=== PATIENT | male | born 1950 | race Caucasian/White ===

== ENCOUNTER 2022-06-18 10:43 | Outpatient (REF) | payer OTHER, SELFPAY ==
[2022-06-18 13:49] LABS: MANUAL DIFF FLAG NO
[2022-06-18 13:54] LABS: Basophils Percent Auto 0.5 % (0-2); Eosinophils Absolute Auto 0.2 X10*3/uL (0.0-0.4); Eosinophils Percent Auto 2.3 % (0-4); Hematocrit 43.5 % (42.0-52.0); Hemoglobin 14.6 g/dl (14.0-18.0); Imm Gran Abs Auto 0.03 X10*3/uL (0.00-0.03); Imm Gran Pct Auto 0.3 % (0.0-0.4); Lymphocytes Absolute Auto 1.9 X10*3/uL (1.2-4.9); Lymphocytes Percent Auto 21.8 % (20-40); Mean Corpuscular HGB Conc 33.6 g/dl (31.0-36.0); Mean Corpuscular Hemoglobin 31.3 pg (27.0-33.0); Mean Corpuscular Volume 93.1 fL (80.0-98.0); Mean Platelet Volume 10.7 fL (9.4-12.4); Monocytes Absolute Auto 0.8 X10*3/uL (0.1-1.2); Monocytes Percent Auto 8.8 % (2-11); Neutrophils Absolute Auto 5.9 x10*3/uL (2.0-8.3); Neutrophils Percent Auto 66.3 % (45-73); Platelet Count 242 X10*3/uL (160-400); Red Blood Count 4.67 X10*6/uL (4.60-5.80); Red Cell Distribution Width 13.2 % (11.0-16.0); White Blood Count 8.9 X10*3/uL (4.8-10.8)
[2022-06-18 14:04] LABS: Estimated Average Glucose 123 mg/dL; Hemoglobin A1c % 5.9 %
[2022-06-18 14:13] LABS: Alanine Aminotransferase 24 U/L (0-40); Albumin Level 3.9 g/dL (3.5-5.0); Alkaline Phosphatase 46 U/L (39-117); Anion Gap 13 (12-20); Aspartate Amino Transferase 24 U/L (5-37); Bilirubin Total 0.5 mg/dL (0.0-1.0); Blood Urea Nitrogen 16 mg/dL (9-16); Calcium 9.1 mg/dL (8.4-10.2); Carbon Dioxide 25 mmol/L (22-29); Chloride 104 mmol/L (96-108); Estimated Glomerular Filt Rate > 60; Glucose Random 109 mg/dL (60-115); Potassium 4.4 mmol/L (3.3-5.1); Sodium 138 mmol/L (135-145); Total Protein 7.3 g/dL (6.5-8.0)
[2022-06-18 14:34] LABS: Prostate Specific Antigen 2.23 ng/mL (<0.05-4.0)
== END 2022-06-18 10:44 | disposition home or self-care (01) ==
LOC: HO.HMGCLDS 10:43
PROVIDERS: PCP Internal Medicine; Visit Provider Internal Medicine
DX: Z12.5 Encounter for screening for malignant neoplasm of prostate (principal); E78.00 Pure hypercholesterolemia, unspecified; I12.9 Hypertensive chronic kidney disease with stage 1 through stage 4 chronic kidney disease, or unspecified chronic kidney disease; N18.31 Chronic kidney disease, stage 3a; N40.1 Benign prostatic hyperplasia with lower urinary tract symptoms
CPT/HCPCS: 36415; 80053; 83036; 84153; 85025

== ENCOUNTER 2022-07-16 15:27 | Emergency (ER) | payer OTHER, SELFPAY ==
[2022-07-16 16:08] VITALS: BP 148/70; PULSE 64; RESP 16; TEMP 36.1; O2SAT 96; BMI 53.9
--- NOTE | 2022-07-16 16:19 | ED_ITS ---
HPI - General Adult General Chief complaint: General Medical Stated complaint: HIGH BP 210/100 , 162/94 NOW PER EMS Time Seen by Provider: 07/16/22 16:18 Source: patient and EMS Mode of arrival: EMS Limitations: no limitations History of Present Illness HPI narrative: Patient is a 72 year old male presenting to the emergency department today with concerns of an elevated blood pressure and that he may lose his apartment. Patient states that he got a new blood pressure cuff and it read very high at home so he called 911. Patient states that he is also concerned that he is going to lose his apartment. Patient denies any dizziness, lightheadedness, abdominal pain, nausea, vomiting, fever, chills, blurry vision, double vision, loss of vision, chest pain, difficulty breathing, shortness of breath, back pain, night sweats, pain with urination, increased urinary frequency, increased urinary urgency, blood in his urine or stool, syncope or a near syncopal episode, recent trauma or falls, bowel incontinence, bladder incontinence, bowel retention, bladder retention, or any other complaints at this time. Severity: mild Severity scale (1-10): 1 Relieving factors: none Exacerbating factors: none Associated symptoms: denies other symptoms Treatments prior to arrival: none Related Data Allergies Allergy/AdvReac Type Severity Reaction Status Date / Time No Known Allergies Allergy Verified 07/16/22 16:26 Review of Systems Constitutional: Constitutional: Reports no additional constitutional complaints, Denies chills, Denies fever(s) and Denies night sweats Eyes: Eyes: Reports no additional eye complaints, Denies blurry vision, Denies change in vision, Denies diplopia, Denies eye discharge, Denies loss of vision and Denies eye pain ENT: Denies dizziness Cardiovascular: Cardiovascular: Reports no additional cardiovascular complaints, Denies chest pain, Denies lightheadedness, Denies Loss of Consciousness and Denies dyspnea Respiratory: Respiratory: Reports no additional respiratory complaints and Denies dyspnea Gastrointestinal: Gastrointestinal: Reports no additional gastrointestinal complaints, Denies abdominal pain, Denies melena, Denies hematochezia, Denies change in bowel habits and Denies change in stool character Genitourinary: Genitourinary: Reports no additional male genitourinary complaints, Denies hematuria, Denies oliguria, Denies difficulty urinating, Denies dysuria, Denies urinary frequency, Denies urinary hesitancy, Denies urinary incontinence and Denies urinary urgency Musculoskeletal: Musculoskeletal: Reports no additional musculoskeletal complaints, Denies numbness and Denies tingling Neurologic: Denies dizziness, Denies loss of vision, Denies numbness and Denies tingling Psychiatric: Psychiatric: Reports no additional psychiatric complaints Endocrine: Endocrine: Reports no additional endocrine complaints Hematologic/Lymphatic: Hematologic/Lymphatic: Reports no additional hematologic/lymphatic complaints Allergic/Immunologic: Allergic/Immunologic: Reports no additional allergic/immunologic complaints PMFSH Past Medical History Attestation statement: The following information was validated with the patient. Source: old records reviewed Social History Social History Advance Directives: No Advance Directives Information Provided: No Physical Exam ED Vital Signs: Vital Signs - 24 hr 07/16/22 16:08 Temperature 97 F Pulse Rate 64 Respiratory Rate 16 Blood Pressure 148/70 H Pulse Oximetry 96 Oxygen Delivery Method Room Air BMI result Body Mass Index 53.9 Const General: cooperative, no acute distress, alert and awake Nutritional Appearance: well nourished Orientation/consciousness: patient oriented x3 Limitations: no limitations HENMT Head: Yes normal to inspection and Yes atraumatic Ears: hearing grossly normal bilaterally and external ears normal General nose exam: Normal external nose present, no nasal discharge noted and no epistaxis Face and sinus: Yes normal facial exam, No abrasion and No laceration Mouth: Normal oral and palatal mucosa present, no drooling and no muffled voice Eyes General: appearance normal, both eyes and all related structures Periorbital: periorbital findings normal Eyelids: Yes eyelids normal Conjunctivae: conjunctivae normal Pupils: Equal, round and reactive pupils present EOM: EOMs intact bilaterally Neck Neck: Yes normal visual inspection, Yes full ROM and Yes no lymphadenopathy Chest Chest palpation & inspection: normal inspection of the chest Resp Effort & Inspection: normal respiratory effort and able to speak in complete sentences Auscultation: clear to auscultation bilaterally Cardio Rate: regular rate Rhythm: regular rhythm GI Inspection: Yes normal to inspection Neuro General: patient oriented x3 and moves all extremities Cranial nerves: Yes Equal, round and reactive pupils present Cognition (Neuro): normal cognition Motor exam (neuro): 5/5 motor strength present throughout Sensory Exam: Normal double simultaneous stimulation for sensation Coordination: [id number] test normal Extrem General: Yes normal to inspection, Yes full ROM and Yes capillary refill normal Psych Appearance: grossly normal Mental Status: mental status grossly normal Affect: normal affect Attitude: cooperative Thought process: Normal thought process present Thought content: Normal thought content present Insight: Good insight present (Psych) Medical Decision Making MDM Narrative Medical decision making narrative: Patient is a 72 year old male presenting to the emergency department today with a possible elevated blood pressure and concerns about his apartment. Patient's physical exam was unremarkable. I explained my physical exam findings to the patient. I answered all questions asked by the patient. Patient spoke to case management and the public health teacher. I stressed the importance of the patient taking his medication as prescribed. I stressed the importance of the patient following up with his primary care provider. I stressed the importance of the patient returning to the emergency department immediately if his symptoms were to worsen or if he were to develop any dizziness, shortness of breath, difficulty breathing, chest pain, blurry vision, loss of vision, nausea, vomiting, abdominal pain, fever, chills, back pain, or any other complaints. Patient verbalized agreement and understanding with this treatment plan and discharge. Medical Records Medical records reviewed: Yes I reviewed the patient's medical records. Discharge Plan Discharge Clinical Impression: History of hypertension Patient Disposition: Home, Self-Care Additional Instructions: Follow up with your primary care provider. Return to the emergency department immediately if your symptoms worsen or if you develop any dizziness, shortness of breath, difficulty breathing, chest pain, blurry vision, loss of vision, nausea, vomiting, abdominal pain, fever, chills, back pain, or any other complaints. Referrals: Sofia Doan MD [Primary Care Provider] - Print Language: Persian
--- NOTE | 2022-07-16 17:28 | PC.NURSE ---
Portable Track Crew Chief currently at bedside speaking with patient
--- NOTE | 2022-07-16 17:41 | PC.NURSE ---
patient seen by Lali from case management- patient is feeling safe to go home.
--- NOTE | 2022-07-16 18:19 | MHC.CM.ED ---
CM met with patient at request of Julianne GUADALUPE, as pt has concerns about his housing. CM met with patient. He tells CM that his partner of the last several years 2 weeks ago in her sleep. Pt is grieving. Pt is concerned about his rent, as he and his partner were both contributing to the rent. Also, his landlord is increasing the rent. CM sat and listened to patient. CM spoke with CARE team for assistance. Pt given contact card, [facility] hand out, telephone contacts for [facility], [facility] and [facility]. Pt has a care giver. Encouraged pt to call his care giver.. Encouraged pt to sign up for elderly housing. Per pt, he has financial need, will be unable to pay his current rent and is a vet. Pt is not vet connected and has no veterans services. CM consulted Pastor Bhakta regarding this patient. Pastor Bhakta met with pt and offered supports and grief counseling. Pt was very happy with his referrals. Julianne and JADE Mackay obtained, as pt does not have transportation.
== END 2022-07-16 17:59 | disposition home or self-care (01) ==
PROVIDERS: Emergency Provider Internal Medicine; PCP Internal Medicine
DX: I10 Essential (primary) hypertension (principal); Z79.899 Other long term (current) drug therapy
CPT/HCPCS: 99282; 99283

== ENCOUNTER 2022-12-09 12:00 | Outpatient (RCR) | payer OTHER, SELFPAY ==
--- NOTE | 2022-12-04 10:54 | P.HPPSP_ITS ---
HPI Date of Service: 12/04/22 Chief Complaint: BLANQUITA Sources of Information: patient interviewed, chart reviewed and crisis/core team assessment reviewed HPI Medical Problems Affecting Mental Status: No Narrative: Mr. Castro is a 72 yo male, with history of depression and anxiety. Referred by [facility], due to worsening depression over the past year, grief surrounding anniversary of spouse's 6 years ago, recent loss of his sister. Endorses symptoms including anhedonia, feeling hopeless and helpless, poor sleep, nightmares, decreased energy, crying, decreased appetite alternating with over eating, with recent weight gain 15 lb. He reports he has been struggling with depression since his 20s. He was tearful at times, although denies SI/HI. Reports that he feels safe. He describes himself as ?a loner and lacking social support?. Although denying any diagnosis bipolar disorder, with either manic episodes or hypomanic episodes, he did state that he experiences moments of euphoria during the day , every day. When asked to elaborate, he states that he becomes extremely joyful mid morning to mid day, increased energy, euphoric mood, of which lasts until evening. As per [facility] from [facility], bipolar disorder, current episode hypomanic was listed as a diagnosis. Precipitants include the anniversary of a who from cancer 6 years ago on December 05, relationship struggles with a partner who struggles with borderline personality disorder. He states that she lives in the same rest home as he does, and they had been seeing each other. (says the relationship ended last night). Patient had briefly moved out of [facility] approximately 1 year ago, and had been living with a female roommate in an apartment. She in fall, and he had a heart attack following the incident, in July. He states he was hospitalized medically, and then return to live in [facility]. The patient denies SI/HI/AH/VH. He is a poor historian, and was unable to provide information about past med trials. Also slightly provocative at times. Noted to have bilateral pill rolling tremors. Denies any history of Parkinson's, TIA, CVA, alcohol of substance use. He is currently retired from [employer] and where he used to work as a psych assistant and social media editor [place]. He has three children, all in their late thirties and forties whom he has limited contact with. The patient currently lives at [facility]. He goes to [employer], where he plans to join a support group for elderly members. ? Past Psychiatric History: Inpatient: [facility] 6 years ago Med trials: Prozac, gabapentin, multiple other medications, does not recall names. No current psychiatric providers. Medical Evaluation Reviewed: Yes [facility] Medical History Arthritis History of acute myocardial infarction Hyperlipidemia Hypertension Obesity Type II diabetes mellitus with hyperosmolarity Family History: Familial history alcohol use. Social History: Born and raised by both parents. Two sisters, 1 brother. Father alcoholic. Met developmental milestones as expected, graduated high school, joined [employer], served for 18 years. Worked as a equipment maint tech, earned bachelor's in social work. 3 times. Had 3 daughters with 2nd , patient has little contact with them. to 3rd 31 years, she December 05 6-7 years ago. Retired, lives in [facility]. Substance History: Denies Trauma History: Victim, emotional (father was alcoholic, rigid) Meds/Allergies Meds Home Medications Medication Instructions Recorded Confirmed Type acetaminophen 500 mg tablet 500 mg PO TID 12/04/22 12/04/22 History amlodipine 10 mg tablet 1 tab PO DAILY 12/04/22 12/04/22 History aspirin 81 mg tablet,delayed 1 tab PO DAILY 12/04/22 12/04/22 History release atorvastatin 80 mg tablet 1 tab PO DAILY 12/04/22 12/04/22 History bupropion HCl 300 mg 24 hr tablet, 1 tab PO DAILY 12/04/22 12/04/22 History extended release clopidogrel 75 mg tablet 1 tab PO DAILY 12/04/22 12/04/22 History finasteride 5 mg tablet 1 tab PO DAILY 12/04/22 12/04/22 History fluoxetine 20 mg capsule 1 cap PO DAILY 12/04/22 12/04/22 History gabapentin 300 mg capsule 1 cap PO DAILY 12/04/22 12/04/22 History losartan 100 1 tab PO DAILY 12/04/22 12/04/22 History mg-hydrochlorothiazide 25 mg tablet metoprolol succinate 100 mg 1 tab PO DAILY 12/04/22 12/04/22 History tablet,extended release 24 hr montelukast 10 mg tablet 1 tab PO DAILY 12/04/22 12/04/22 History sennosides 8.6 mg tablet (senna) 8.6 mg PO DAILY 12/04/22 12/04/22 History tamsulosin 0.4 mg capsule 1 cap PO DAILY 12/04/22 12/04/22 History trazodone 100 mg tablet 1 tab PO BEDTIME 12/04/22 12/04/22 History Allergies Allergies Allergy/AdvReac Type Severity Reaction Status Date / Time lisinopril Allergy Unknown Verified 12/04/22 14:26 Penicillins [PCN] Allergy Unknown Verified 12/04/22 14:26 Mental Status Exam Mental Status Exam Narrative: Well-developed, overweight male, NAD. Ambulation slow but steady. No perceptual disturbances noted, denies SI/HI/AH/VH. Patient Appearance: Appropriate Patient Orientation: Person, Place, Time and Situation Level of Consciousness: Appropriate Patient Behavior: Appropriate, Cooperative, Good Eye Contact and Crying (tearful at times) Mood Description: Depressed (describes mood as very bad ) Affect Description: Depressed and Flat Patient Cognition Impaired: No Ability to Follow Directions: Good Speech Pattern: Clear Memory Description: Episodic Impaired and Working Impaired Hallucinations: None Delusions: Not Present Thought Process: Intact Thought Content: positive for Circumstantial Depressive Symptoms: Increased Anxiety, Difficulty Sleeping, Changes in Appetite, Loss of Int. in Activity, Hopelessness, Unhappiness and Loss of Energy Abnormal Motor Activity Signs and Symptoms: Tremors (pill rolling bilaterally) Judgement: Fair Assessment & Plan Assessment & Plan (1) Major depressive disorder, recurrent severe without psychotic features: Status: Acute Code(s): F33.2 - Major depressive disorder, recurrent severe without psychotic features Assessment and Plan: Patient reports history of depression and anxiety for past 50 years. Patient has had multiple losses, including this being 6-7 year anniversary of his of 31 years passing away. He also had been living with someone as recent as July 2022, who in the apartment. He then experienced an UT, and was hospitalized medically. He has since returned to rest home where he had been living before moving to apartment. Has been experiencing anhedonia, feeling hopeless and helpless, fatigue, tearful at times, fluctuating appetite with recent weight gain of 15 lb, poor sleep. Denies any SI either past or present, no intent or plan. Feels safe. No HI, denies any auditory or visual hallucinations. Patient denies any history of bipolar disorder, but then explains that he has moments of euphoria every day, and that they begin in the late morning, and then he settles down the evening. As per medication record from [facility], a diagnosis of bipolar disorder is listed. Patient also, through chart review, has history of Haldol low-dose briefly for 2 months this past summer. He states that the medication was given for depression and anxiety. No other mood stabilizers were listed in chart review. Patient also was poor historian, impaired working memory. He was however fully alert and oriented. He was able to state where he was, why he was here, and what he hopes to benefit from our program. Gait was slow but steady. Some EPS, pill rolling bilateral fingers throughout interview. Only history of antipsychotic meds was a brief script for Haldol in summer. Patient does not recall any medications he has trialed in the past. He has psychiatrist that he had worked with, who has since retired. Patient has no current psychiatric providers. He says he gets his medications administered to him at the rest home, and does not know what they are. Per home med review, patient is receiving bupropion, fluoxetine, gabapentin. We discussed lamotrigine. Patient says he remembers taking this in the past, and that he tolerated it well. Reviewed medications indications of use, side effects both benign and serious. He is willing to trial low-dose at this time. Differential diagnoses: Possible mild cognitive impairment, possible Parkinson's, possible bipolar disorder. (2) BLANQUITA (generalized anxiety disorder): Status: Acute Code(s): F41.1 - Generalized anxiety disorder Assessment and Plan: Patient was somewhat anxious, although overall more depressed. Patient reports a long history of generalized anxiety, since his early 20s. He explains that due to the multiple losses he has had over the past year, as well as anniversary of his 's this week, his anxiety has increased. He is hoping to work on healthy coping skills while here. Plan 1. Gather collateral information. 2. Start lamotrigine 25 mg daily. 3. Administer [place]. 4. Follow-up as per protocol. Patient educated on: diagnosis, medication risk/benefits and therapeutic strategies Informed Consent: understands and further education needed Reason for continued partial hosp. stay Substantial Risk for: inability to function, rapid decompensation and med/psych decompensation Certification I certify that partial hospital treatment is medically necessary due to the symptoms and problems resulting from the patient's mental illness and the failure to treat the patient at the partial hospital level of care would likely result in the patient requiring inpatient psychiatric care which could not be prevented at a less intensive level of care. Time Spent With Patient Time: Total time managing care of this patient today 55____ minutes.
[2022-12-04 12:09] VITALS: BP 118/60; PULSE 80; TEMP 37.4
[2022-12-04 12:13] VITALS: BMI 49.6
--- NOTE | 2022-12-04 14:03 | PC.ADMIT ---
Patient is a 72 year old male who was referred to [facility] by his rehabilitation case coordinator at his insurance co. CCA d/t increased depression and anxiety sxs. See Intergrative Assessment for more information. Patient reports stressors include the anniversary of his wifes is coming up, stated she 6 years ago and is still grieving her loss. Stated they were together for 31 years. Patient also reports he found his roommate , who suddenly and unexpectedly in July 2022. He reports he had a CA 2 days after he found his roommate . Patient also reports relationship issues with a girlfriend whom he broke up with a just yesterday who has mental health issues. Patient lives at [facility] and stated staff there administer his medications. He reports taking his medications as prescribed. Patient presented with depressed mood and affect. Reports having passive SI having thoughts, to end it all however reports he could never go through with it. Denied plan or intent to kill or harm himself. Patient is alert and oriented x4. Calm and cooperative. Patient given a copy of his safety plan if needed. Medications reconciled with list patient brought in from [facility] and per pharmacy.
--- NOTE | 2022-12-10 10:14 | PC.NURSE ---
Patient did not show up to the program today. I called and spoke to Ryley who stated he is unable to come to the program as the arthritis in his knees is acting up d/t the cold. He also is fearful of slipping on the ice and has many stairs to walk down where he lives at [facility]. I recommended patient talk to his PCP regarding if he could benefit from PT. Patient stated he would follow up with his PCP. Patient also stated his PCP is prescribing his mediations. Patient is interested in a therapist and prescriber. PHP KRISTEL Centeno will call patient and f/u. PHP team is aware.
--- NOTE | 2022-12-14 13:55 | HO.PHP ---
I spoke with Austin about aftercare plans. He would like a referral to [facility] . He gave his verbal consent to make the referral and to send the necessary paperwork including information about past substance abuse.
--- NOTE | 2022-12-15 14:30 | HO.PHP ---
I contacted [facility] to make a referral for the client for a therapist. The intake person said that he has been seeing a therapist there and has a prescriber there already. He has appointment set with each already. I then spoke to Austin about this and he said that's right I didn't realize that is what you were talking about.
== END 2022-12-09 23:59 | disposition home or self-care (01) ==
LOC: HO.PHPA 12:00
PROVIDERS: Visit Provider Psychiatry & Neurology Psychiatry
DX: F33.2 Major depressive disorder, recurrent severe without psychotic features (principal); F41.1 Generalized anxiety disorder
CPT/HCPCS: 90791; 90853